=== PATIENT | female | born 1945 | race Caucasian/White ===

== ENCOUNTER 2019-04-28 11:24 | Observation (INO) | payer MEDICARE, OTHER, SELFPAY ==
[2019-04-28] VITALS (7 sets, daily range): BP systolic 131–160; BP diastolic 67–87; PULSE 60–73; RESP 12–18; TEMP 36.5–36.7; O2SAT 96–99; BMI 28.1
--- NOTE | 2019-04-28 11:35 | DI.RAD.S_ITS ---
PROCEDURE: XR CHEST 1V INDICATIONS: chest pain TECHNIQUE: One view of the chest was acquired. COMPARISON: None. FINDINGS: Surgical changes and devices: None. Lungs and pleura: Lungs are clear. No pleural effusions or pneumothorax. Mediastinum: Mediastinal contours appear normal. Heart size is normal. Bones and chest wall: No suspicious bony lesions. Overlying soft tissues appear unremarkable. IMPRESSION: No acute cardiopulmonary pathology. Dictated by: Jose Tinoco M.D. on 04/28/2019 at 12:22 Approved by: Jose Tinoco M.D. on 04/28/2019 at 12:22
--- NOTE | 2019-04-28 11:47 | ED_ITS ---
HPI - Chest Pain <Margiezena BrownBRODY bartonP-BC - Last Filed: 04/28/19 14:02> General Chief Complaint: Chest Pain Stated Complaint: Chest pain Time Seen by Provider: 04/28/19 11:36 Source: patient Mode of arrival: ambulatory Limitations: no limitations History of Present Illness HPI narrative: The patient is a 74-year-old female former smoker with history of hyperlipidemia, hypertension pancreatitis who presents with a chief complaint of epigastric pain radiating up through her chest to her jaw. She states it happened suddenly. Her pain is currently 0.5/10. She states the pain waxes and wanes. She denies any palpitations, lightheadedness dizziness nausea vomiting or shortness of breath. She states at times the pain was so bad she was short of breath, but states this is only due to the pain. She has never felt this way before. She states happened immediately after she ate breakfast when she was ambulating into the [facility] [place] Related Data Home Medications Medication Instructions Recorded Confirmed Calcium Citrate + D 1 tab PO BID 04/28/19 04/28/19 Probiotic 1 cap PO DAILY 04/28/19 04/28/19 Vitamin B 50 1 tab PO DAILY 04/28/19 04/28/19 aspirin 81 mg PO QPM 04/28/19 04/28/19 atenolol 25 mg PO QPM 04/28/19 04/28/19 atorvastatin 10 mg PO QPM 04/28/19 04/28/19 bupropion HCl 150 mg PO BID 04/28/19 04/28/19 cetirizine [Zyrtec] 10 mg PO DAILY 04/28/19 04/28/19 cholecalciferol (vitamin D3) 2,000 unit PO BID 04/28/19 04/28/19 [Vitamin D3] fluticasone propionate 1 spray INTRANASAL BID 04/28/19 04/28/19 levothyroxine 50 mcg PO DAILY 04/28/19 04/28/19 omeprazole 40 mg PO PRN PRN 04/28/19 04/28/19 sertraline 100 mg PO DAILY 04/28/19 04/28/19 Allergies Allergy/AdvReac Type Severity Reaction Status Date / Time adhesive tape AdvReac Intermediate Gastrointestinal Verified 04/28/19 14:49 Upset cephalexin [From Keflex] AdvReac Intermediate Rash Verified 04/28/19 14:49 pineapple AdvReac Intermediate Verified 04/28/19 14:50 plum AdvReac Intermediate mouth sores Verified 04/28/19 14:51 Sulfa (Sulfonamide AdvReac Intermediate Rash Verified 04/28/19 14:49 Antibiotics) walnut AdvReac Intermediate mouth Verified 04/28/19 14:50 Review of Systems <BRODY HookP- - Last Filed: 04/28/19 14:02> Review of Systems GENERAL: Denies chills, fatigue, malaise, fever, sweats. HEENT: Denies sinus pain, ear pain, sore throat, difficulty swallowing, dizziness. RESPIRATORY: Denies dyspnea, cough, wheezing, hemoptysis, sputum. CARDIOVASCULAR: See HPI GASTROINTESTINAL: See HPI : Denies dysuria, frequency, incontinence, hematuria, urinary retention. MUSCULOSKELETAL: denies weakness, joint pain, or bony pain SKIN: Denies rash, skin lesions, or other NEUROLOGIC: Denies weakness, headache, numbness, change in speech, confusion, seizures, incoordination. PSYCHIATRIC: No concerning psychosocial issues. 12 point review of systems is negative except for those stated above PFSH <Margie Gutierrez [facility]- - Last Filed: 04/28/19 14:02> Medical History (Updated 04/28/19 @ 14:43 by Sachin Diop MD) CKD (chronic kidney disease) stage 3, GFR 30-59 ml/min (Acute) History of breast cancer (Acute) History of pancreatitis (Acute) Hyperlipidemia (Acute) Hypertension (Acute) Surgical History (Updated 04/28/19 @ 14:41 by Sachin Diop MD) H/O hysterectomy with oophorectomy (Acute) H/O lumpectomy (Acute) H/O mastectomy (Acute) History of (Acute) History of axillary surgery (Acute) History of reconstruction of left breast (Acute) History of reconstruction of right breast (Acute) History of tonsillectomy (Acute) Family History (Updated 04/28/19 @ 14:43 by Sachin Diop MD) Father Heart attack Brother Heart attack Grandfather Heart attack Mother Lung cancer Social History household members: spouse Smoking Status: Former smoker alcohol intake: current Social History household members: spouse Smoking Status: Former smoker alcohol intake: current Exam <LEE Hook-BC - Last Filed: 04/28/19 14:02> Narrative Exam Narrative: GENERAL: This is a well-nourished, well-developed patient, no acute distress HEAD: Atraumatic. Normocephalic. No temporal or scalp tenderness. EYES: Pupils equal round and reactive. Extraocular motions intact. No scleral icterus. No injection or drainage. ENT: Nose without bleeding, purulent drainage or septal hematoma. Throat without erythema, tonsillar hypertrophy or exudate. Uvula midline. Airway patent. NECK: Trachea midline. No JVD or lymphadenopathy. Supple, nontender, no meningeal signs. CARDIOVASCULAR: Regular rate and rhythm RESPIRATORY: Clear to auscultation. Breath sounds equal bilaterally. No wheezes, rales, or rhonchi. No cough. No increased respiratory effort. No accessory muscle use. GASTROINTESTINAL: Abdomen soft, non-tender, nondistended. No hepato- splenomegaly, or palpable masses. No guarding. Active bowel sounds all 4 quadrants. EXTREMITIES: No clubbing, cyanosis, or edema. No joint tenderness, effusion, or edema noted. BACK: Nontender without deformity or crepitance. No flank tenderness. NEURO: AOx3. No gross cranial nerve deficit. SKIN: No rash or erythema. Initial Vital Signs Initial Vital Signs: Vital Signs Temperature 98 F 04/28/19 11:30 Pulse Rate 73 04/28/19 11:30 Respiratory Rate 18 04/28/19 11:30 Blood Pressure 150/75 H 04/28/19 11:30 Pulse Oximetry 97 04/28/19 11:30 <Margie Vieira DO - Last Filed: 04/29/19 08:33> Initial Vital Signs Initial Vital Signs: Vital Signs Temperature 98 F 04/28/19 11:30 Pulse Rate 73 04/28/19 11:30 Respiratory Rate 18 04/28/19 11:30 Blood Pressure 150/75 H 04/28/19 11:30 Pulse Oximetry 97 04/28/19 11:30 Scores <RANJIT Hook - Last Filed: 04/28/19 14:02> GCS Rose coma scale eye opening: Spontaneous Rose coma scale verbal response: Orientated [place] coma scale motor response: Obey commands Rose coma scale total score: 15 HEART Score Heart Score history: Moderately Suspicious Heart Score EKG: Normal Heart Score Age: > or = 65 years old Heart Score risk factors: > 3 risk factors or hx of atherosclerotic disease Heart Score troponin: < or = to normal limit Heart Score Total: 5 Course <Margiezena BrownLEE barton-BC - Last Filed: 04/28/19 14:02> Orders Ordered: ED Orders 04/29/19 06:35 Amylase Routine Basic Metabolic Panel Routine Lipid Panel Routine Troponin I Routine Aspirin (Aspirin Ec) 81 mg PO QPM [facility] Last Admin: 04/28/19 17:46 Dose: 81 mg Atorvastatin Calcium (Lipitor) 10 mg PO QPM [facility] Last Admin: 04/28/19 17:46 Dose: 10 mg Bupropion HCl (Wellbutrin Sr) 150 mg PO 0900,1700 [facility] Last Admin: 04/29/19 08:15 Dose: 150 mg Admin: 04/28/19 17:46 Dose: 150 mg Calcium Carbonate/Cholecalciferol (Oyster Shell 500-Vit D3 200 Tb) 1 each PO 0900,1700 [facility] Last Admin: 04/29/19 08:15 Dose: 1 each Admin: 04/28/19 17:47 Dose: 1 each Enoxaparin Sodium (Lovenox) 40 mg SUBCUT DAILY [facility] Last Admin: 04/29/19 08:15 Dose: 40 mg Fluticasone Propionate (Flonase) 1 spray NASAL 0900,1700 [facility] Last Admin: 04/29/19 07:56 Dose: Not Given Admin: 04/28/19 17:47 Dose: Not Given Lactobacillus Acidophilus (Bacid Caplet) 1 each PO DAILY [facility] Last Admin: 04/29/19 08:15 Dose: 1 each Levothyroxine Sodium (Synthroid) 50 mcg PO DAILY [facility] Last Admin: 04/29/19 08:15 Dose: 50 mcg Loratadine (Claritin) 10 mg PO DAILY [facility] Last Admin: 04/29/19 08:15 Dose: 10 mg Pantoprazole Sodium (Protonix) 40 mg PO PRN PRN PRN Reason: Acid Reflux Last Admin: 04/29/19 08:15 Dose: 40 mg Sertraline HCl (Zoloft) 100 mg PO DAILY [facility] Last Admin: 04/29/19 08:15 Dose: 100 mg Vitamin D (Vitamin D3) 2,000 unit PO 0900,1700 [facility] Last Admin: 04/29/19 08:15 Dose: 2,000 unit Admin: 04/28/19 17:47 Dose: 2,000 unit Discontinued Medications Aspirin (Aspirin) 325 mg PO NOW ONE Stop: 04/28/19 14:59 Last Admin: 04/28/19 15:37 Dose: 325 mg Non-Formulary Medication (Vitamin B 50) 1 tab PO DAILY [facility] Vital Signs - 8 hr 04/29/19 06:26 Temperature 97.6 F Pulse Rate 61 Respiratory Rate 16 Blood Pressure 120/79 Pulse Oximetry 97 <Margie Vieira, DO - Last Filed: 04/29/19 08:33> Orders Ordered: ED Orders 04/29/19 06:35 Amylase Routine Basic Metabolic Panel Routine Lipid Panel Routine Troponin I Routine Aspirin (Aspirin Ec) 81 mg PO QPM [facility] Last Admin: 04/28/19 17:46 Dose: 81 mg Atorvastatin Calcium (Lipitor) 10 mg PO QPM [facility] Last Admin: 04/28/19 17:46 Dose: 10 mg Bupropion HCl (Wellbutrin Sr) 150 mg PO 0900,1700 [facility] Last Admin: 04/29/19 08:15 Dose: 150 mg Admin: 04/28/19 17:46 Dose: 150 mg Calcium Carbonate/Cholecalciferol (Oyster Shell 500-Vit D3 200 Tb) 1 each PO 0900,1700 [facility] Last Admin: 04/29/19 08:15 Dose: 1 each Admin: 04/28/19 17:47 Dose: 1 each Enoxaparin Sodium (Lovenox) 40 mg SUBCUT DAILY [facility] Last Admin: 04/29/19 08:15 Dose: 40 mg Fluticasone Propionate (Flonase) 1 spray NASAL 0900,1700 [facility] Last Admin: 04/29/19 07:56 Dose: Not Given Admin: 04/28/19 17:47 Dose: Not Given Lactobacillus Acidophilus (Bacid Caplet) 1 each PO DAILY [facility] Last Admin: 04/29/19 08:15 Dose: 1 each Levothyroxine Sodium (Synthroid) 50 mcg PO DAILY [facility] Last Admin: 04/29/19 08:15 Dose: 50 mcg Loratadine (Claritin) 10 mg PO DAILY [facility] Last Admin: 04/29/19 08:15 Dose: 10 mg Pantoprazole Sodium (Protonix) 40 mg PO PRN PRN PRN Reason: Acid Reflux Last Admin: 04/29/19 08:15 Dose: 40 mg Sertraline HCl (Zoloft) 100 mg PO DAILY [facility] Last Admin: 04/29/19 08:15 Dose: 100 mg Vitamin D (Vitamin D3) 2,000 unit PO 0900,1700 [facility] Last Admin: 04/29/19 08:15 Dose: 2,000 unit Admin: 04/28/19 17:47 Dose: 2,000 unit Discontinued Medications Aspirin (Aspirin) 325 mg PO NOW ONE Stop: 04/28/19 14:59 Last Admin: 04/28/19 15:37 Dose: 325 mg Non-Formulary Medication (Vitamin B 50) 1 tab PO DAILY [facility] Vital Signs - 8 hr 04/29/19 06:26 Temperature 97.6 F Pulse Rate 61 Respiratory Rate 16 Blood Pressure 120/79 Pulse Oximetry 97 MDM - Chest Pain <RANJIT Hook - Last Filed: 04/28/19 14:02> Lab Data Result diagrams: 04/28/19 11:42 04/28/19 11:42 Lab Results 04/28/19 04/28/19 04/28/19 Range/Units 11:42 11:42 11:42 WBC 5.5 (4.5-11.0) X10^3/uL RBC 4.72 (4.0-5.2) X10^6/uL Hgb 14.5 (12.0-16.0) g/dL Hct 42.4 (36-46) % MCV 89.8 (80-100) fL MCH 30.7 (26-34) PG MCHC 34.1 (30-36) % RDW 13.9 (11.6-14.8) % Plt Count 261 (150-400) X10^3/uL Neut % (Auto) 59.7 (50-75) % Lymph % (Auto) 27.1 (25-40) % [place] % (Auto) 10.4 (3-14) % Eos % (Auto) 2.0 (2-4) % Baso % (Auto) 0.8 (0-2) % Neut # (Auto) 3300 (1124-7740) /uL Lymph # (Auto) 1500 (5380-7614) /uL Aiken # (Auto) 600 (0-900) /uL Eos # (Auto) 100 (0-450) /uL Baso # (Auto) 0 (0-100) /uL PT 11.0 (10.1-12.7) SECONDS INR 1.0 (0.9-1.3) APTT 27 (26.4-36.2) SECONDS Sodium 140 (137-145) mmol/L Potassium 4.0 (3.4-5.1) mmol/L Chloride 104 (98-107) mmol/L Carbon Dioxide 25 (22-32) mmol/L BUN 22 H (7-17) mg/dL Creatinine 1.20 H (0.52-1.04) mg/dL Estimated GFR 44.0 L (>60) mL/min BUN/Creatinine Ratio 18.3 (6-22) Glucose 94 (80-110) mg/dL Calcium 10.3 H (8.4-10.2) mg/dL Total Bilirubin 0.9 (0.2-1.3) mg/dL AST 30 (14-36) IU/L ALT 29 (9-52) IU/L Alkaline Phosphatase 63 (38-126) U/L Total Creatine Kinase 56 (30-135) U/L CK-MB (CK-2) TNP CK-MB (CK-2) Rel Index TNP Troponin I < 0.012 (0.01-0.034) ng/mL Total Protein 7.9 (6.3-8.2) g/dL Albumin 4.8 (3.5-5.0) g/dL Globulin 3.1 (1.7-4.1) g/dL Albumin/Globulin Ratio 1.5 (1.0-2.8) Amylase (30-110) U/L Lipase 135 (23-300) U/L 04/28/19 04/28/19 04/28/19 Range/Units 11:42 15:40 19:13 WBC (4.5-11.0) X10^3/uL RBC (4.0-5.2) X10^6/uL Hgb (12.0-16.0) g/dL Hct (36-46) % MCV (80-100) fL MCH (26-34) PG MCHC (30-36) % RDW (11.6-14.8) % Plt Count (150-400) X10^3/uL Neut % (Auto) (50-75) % Lymph % (Auto) (25-40) % Aiken % (Auto) (3-14) % Eos % (Auto) (2-4) % Baso % (Auto) (0-2) % Neut # (Auto) (8395-8364) /uL Lymph # (Auto) (4706-2259) /uL Aiken # (Auto) (0-900) /uL Eos # (Auto) (0-450) /uL Baso # (Auto) (0-100) /uL PT (10.1-12.7) SECONDS INR (0.9-1.3) APTT (26.4-36.2) SECONDS Sodium (137-145) mmol/L Potassium (3.4-5.1) mmol/L Chloride (98-107) mmol/L Carbon Dioxide (22-32) mmol/L BUN (7-17) mg/dL Creatinine (0.52-1.04) mg/dL Estimated GFR (>60) mL/min BUN/Creatinine Ratio (6-22) Glucose (80-110) mg/dL Calcium (8.4-10.2) mg/dL Total Bilirubin (0.2-1.3) mg/dL AST (14-36) IU/L ALT (9-52) IU/L Alkaline Phosphatase (38-126) U/L Total Creatine Kinase (30-135) U/L CK-MB (CK-2) CK-MB (CK-2) Rel Index Troponin I < 0.012 (0.01-0.034) ng/mL Total Protein (6.3-8.2) g/dL Albumin (3.5-5.0) g/dL Globulin (1.7-4.1) g/dL Albumin/Globulin Ratio (1.0-2.8) Amylase 122 H (30-110) U/L Lipase 118 (23-300) U/L 04/28/19 04/28/19 Range/Units 19:13 23:05 WBC (4.5-11.0) X10^3/uL RBC (4.0-5.2) X10^6/uL Hgb (12.0-16.0) g/dL Hct (36-46) % MCV (80-100) fL MCH (26-34) PG MCHC (30-36) % RDW (11.6-14.8) % Plt Count (150-400) X10^3/uL Neut % (Auto) (50-75) % Lymph % (Auto) (25-40) % Aiken % (Auto) (3-14) % Eos % (Auto) (2-4) % Baso % (Auto) (0-2) % Neut # (Auto) (6528-7233) /uL Lymph # (Auto) (4701-9248) /uL Aiken # (Auto) (0-900) /uL Eos # (Auto) (0-450) /uL Baso # (Auto) (0-100) /uL PT (10.1-12.7) SECONDS INR (0.9-1.3) APTT (26.4-36.2) SECONDS Sodium (137-145) mmol/L Potassium (3.4-5.1) mmol/L Chloride (98-107) mmol/L Carbon Dioxide (22-32) mmol/L BUN (7-17) mg/dL Creatinine (0.52-1.04) mg/dL Estimated GFR (>60) mL/min BUN/Creatinine Ratio (6-22) Glucose (80-110) mg/dL Calcium (8.4-10.2) mg/dL Total Bilirubin (0.2-1.3) mg/dL AST (14-36) IU/L ALT (9-52) IU/L Alkaline Phosphatase (38-126) U/L Total Creatine Kinase (30-135) U/L CK-MB (CK-2) CK-MB (CK-2) Rel Index Troponin I < 0.012 (0.01-0.034) ng/mL Total Protein (6.3-8.2) g/dL Albumin (3.5-5.0) g/dL Globulin (1.7-4.1) g/dL Albumin/Globulin Ratio (1.0-2.8) Amylase 89 (30-110) U/L Lipase (23-300) U/L Urine Dip Bedside Urine Glucose Negative Bedside Urine Bilirubin - Negative Bedside Urine Ketone - Negative Urine Specific [place] 1.015 Bedside Urine Occult Blood - Negative Bedside Urine pH 7.5 Bedside Urine Protein - Negative Bedside Urine Urobilinogen - Negative Bedside Urine Nitrite - Negative Bedside Urine Leukocytes - Negative Esterase Imaging Data Chest x-ray: Radiologist's impression: Yoselin Bower 74 F [address] [address] XRay Report Signed Patient: Yoselin BowerMR#: [id number] : 6Acct:[id number] Age/Sex: 74 / FDate of Service: 04/28/19 Loc: ED Accession Number: [id number] Procedure: XR chest 1V Ordering Provider: Margie Vieira D.O. PROCEDURE: XR CHEST 1V INDICATIONS: chest pain TECHNIQUE: One view of the chest was acquired. COMPARISON: None. FINDINGS: Surgical changes and devices: None. Lungs and pleura: Lungs are clear. No pleural effusions or pneumothorax. Mediastinum: Mediastinal contours appear normal. Heart size is normal. Bones and chest wall: No suspicious bony lesions. Overlying soft tissues carlos ear unremarkable. IMPRESSION: No acute cardiopulmonary pathology. Dictated by: Jose Tinoco M.D. on 04/28/2019 at 12:22 Approved by: Jose Tinoco M.D. on 04/28/2019 at 12:22 ECG Data Attestation: I personally reviewed and interpreted this ECG as follows: Interpretation: Ventricular rate 66. Sinus rhythm. No ST elevation or depression noted. No ectopy noted. Viewed by Dr. Vieira MDM Narrative Medical decision making narrative: The patient is a 74-year-old female with a concerning medical and family history presents with a chief complaint of chest pain. She has a negative troponin, negative chest x-ray, normal EKG that was straight sinus rhythm. However given her symptoms, and family history as well as her personal history, her heart score shows moderate risk. Given that the patient's PCP is in [place], I contacted Dr. Diop for admission. He kindly agreed to admit the patient for further evaluation such as echo, stress test etc. Patient states understanding of admission. She was chest pain free throughout her stay in the emergency department, with her pain from 0.5/10 decreasing to 0 out shortly after arrival. <Margie Vieira DO - Last Filed: 04/29/19 08:33> Lab Data Lab Results 04/28/19 04/28/19 04/28/19 Range/Units 11:42 11:42 11:42 WBC 5.5 (4.5-11.0) X10^3/uL RBC 4.72 (4.0-5.2) X10^6/uL Hgb 14.5 (12.0-16.0) g/dL Hct 42.4 (36-46) % MCV 89.8 (80-100) fL MCH 30.7 (26-34) PG MCHC 34.1 (30-36) % RDW 13.9 (11.6-14.8) % Plt Count 261 (150-400) X10^3/uL Neut % (Auto) 59.7 (50-75) % Lymph % (Auto) 27.1 (25-40) % Aiken % (Auto) 10.4 (3-14) % Eos % (Auto) 2.0 (2-4) % Baso % (Auto) 0.8 (0-2) % Neut # (Auto) 3300 (2817-9263) /uL Lymph # (Auto) 1500 (5295-3917) /uL Aiken # (Auto) 600 (0-900) /uL Eos # (Auto) 100 (0-450) /uL Baso # (Auto) 0 (0-100) /uL PT 11.0 (10.1-12.7) SECONDS INR 1.0 (0.9-1.3) APTT 27 (26.4-36.2) SECONDS Sodium 140 (137-145) mmol/L Potassium 4.0 (3.4-5.1) mmol/L Chloride 104 (98-107) mmol/L Carbon Dioxide 25 (22-32) mmol/L BUN 22 H (7-17) mg/dL Creatinine 1.20 H (0.52-1.04) mg/dL Estimated GFR 44.0 L (>60) mL/min BUN/Creatinine Ratio 18.3 (6-22) Glucose 94 (80-110) mg/dL Calcium 10.3 H (8.4-10.2) mg/dL Total Bilirubin 0.9 (0.2-1.3) mg/dL AST 30 (14-36) IU/L ALT 29 (9-52) IU/L Alkaline Phosphatase 63 (38-126) U/L Total Creatine Kinase 56 (30-135) U/L CK-MB (CK-2) TNP CK-MB (CK-2) Rel Index TNP Troponin I < 0.012 (0.01-0.034) ng/mL Total Protein 7.9 (6.3-8.2) g/dL Albumin 4.8 (3.5-5.0) g/dL Globulin 3.1 (1.7-4.1) g/dL Albumin/Globulin Ratio 1.5 (1.0-2.8) Amylase (30-110) U/L Lipase 135 (23-300) U/L 04/28/19 04/28/19 04/28/19 Range/Units 11:42 15:40 19:13 WBC (4.5-11.0) X10^3/uL RBC (4.0-5.2) X10^6/uL Hgb (12.0-16.0) g/dL Hct (36-46) % MCV (80-100) fL MCH (26-34) PG MCHC (30-36) % RDW (11.6-14.8) % Plt Count (150-400) X10^3/uL Neut % (Auto) (50-75) % Lymph % (Auto) (25-40) % Aiken % (Auto) (3-14) % Eos % (Auto) (2-4) % Baso % (Auto) (0-2) % Neut # (Auto) (7555-8206) /uL Lymph # (Auto) (9193-6856) /uL Aiken # (Auto) (0-900) /uL Eos # (Auto) (0-450) /uL Baso # (Auto) (0-100) /uL PT (10.1-12.7) SECONDS INR (0.9-1.3) APTT (26.4-36.2) SECONDS Sodium (137-145) mmol/L Potassium (3.4-5.1) mmol/L Chloride (98-107) mmol/L Carbon Dioxide (22-32) mmol/L BUN (7-17) mg/dL Creatinine (0.52-1.04) mg/dL Estimated GFR (>60) mL/min BUN/Creatinine Ratio (6-22) Glucose (80-110) mg/dL Calcium (8.4-10.2) mg/dL Total Bilirubin (0.2-1.3) mg/dL AST (14-36) IU/L ALT (9-52) IU/L Alkaline Phosphatase (38-126) U/L Total Creatine Kinase (30-135) U/L CK-MB (CK-2) CK-MB (CK-2) Rel Index Troponin I < 0.012 (0.01-0.034) ng/mL Total Protein (6.3-8.2) g/dL Albumin (3.5-5.0) g/dL Globulin (1.7-4.1) g/dL Albumin/Globulin Ratio (1.0-2.8) Amylase 122 H (30-110) U/L Lipase 118 (23-300) U/L 04/28/19 04/28/19 Range/Units 19:13 23:05 WBC (4.5-11.0) X10^3/uL RBC (4.0-5.2) X10^6/uL Hgb (12.0-16.0) g/dL Hct (36-46) % MCV (80-100) fL MCH (26-34) PG MCHC (30-36) % RDW (11.6-14.8) % Plt Count (150-400) X10^3/uL Neut % (Auto) (50-75) % Lymph % (Auto) (25-40) % Aiken % (Auto) (3-14) % Eos % (Auto) (2-4) % Baso % (Auto) (0-2) % Neut # (Auto) (1035-9991) /uL Lymph # (Auto) (3514-9782) /uL Aiken # (Auto) (0-900) /uL Eos # (Auto) (0-450) /uL Baso # (Auto) (0-100) /uL PT (10.1-12.7) SECONDS INR (0.9-1.3) APTT (26.4-36.2) SECONDS Sodium (137-145) mmol/L Potassium (3.4-5.1) mmol/L Chloride (98-107) mmol/L Carbon Dioxide (22-32) mmol/L BUN (7-17) mg/dL Creatinine (0.52-1.04) mg/dL Estimated GFR (>60) mL/min BUN/Creatinine Ratio (6-22) Glucose (80-110) mg/dL Calcium (8.4-10.2) mg/dL Total Bilirubin (0.2-1.3) mg/dL AST (14-36) IU/L ALT (9-52) IU/L Alkaline Phosphatase (38-126) U/L Total Creatine Kinase (30-135) U/L CK-MB (CK-2) CK-MB (CK-2) Rel Index Troponin I < 0.012 (0.01-0.034) ng/mL Total Protein (6.3-8.2) g/dL Albumin (3.5-5.0) g/dL Globulin (1.7-4.1) g/dL Albumin/Globulin Ratio (1.0-2.8) Amylase 89 (30-110) U/L Lipase (23-300) U/L Urine Dip Bedside Urine Glucose Negative Bedside Urine Bilirubin - Negative Bedside Urine Ketone - Negative Urine Specific [place] 1.015 Bedside Urine Occult Blood - Negative Bedside Urine pH 7.5 Bedside Urine Protein - Negative Bedside Urine Urobilinogen - Negative Bedside Urine Nitrite - Negative Bedside Urine Leukocytes - Negative Esterase Discharge Plan Departure Patient Disposition: Admitted as Observation Clinical Impression: Chest pain Qualifiers: Chest pain type: unspecified Qualified Code(s): R07.9 - Chest pain, unspecified Discharge Date/Time: 04/28/19 14:12 Interventions: ED Discharge Assessment Last Done: 04/28/19 13:57 Admit Date/Time: 04/28/19 13:26 Admit Provider: Sachin Diop <Margie Vieira DO - Last Filed: 04/29/19 08:33> Cosign ED Attending Cosmichaelature Attestation: I was immediately available in the department for consultation. This documentation has been reviewed and I agree with assessment and plan. Supervised by Margie Vieira DO
[2019-04-28 11:59] LABS: Add Manual Diff / Slide Review NO; Basophils Absolute Auto 0 /uL (0-100); Basophils Percent Auto 0.8 % (0-2); Eosinophils Absolute Auto 100 /uL (0-450); Hematocrit 42.4 % (36-46); Hemoglobin 14.5 g/dL (12.0-16.0); Lymphocytes Absolute Auto 1500 /uL (1100-4500); Lymphocytes Percent Auto 27.1 % (25-40); Mean Corpuscular HGB Conc 34.1 % (30-36); Mean Corpuscular Hemoglobin 30.7 PG (26-34); Mean Corpuscular Volume 89.8 fL (80-100); Monocytes Absolute Auto 600 /uL (0-900); Monocytes Percent Auto 10.4 % (3-14); Neutrophils Absolute Auto 3300 /uL (1500-7000); Neutrophils Percent Auto 59.7 % (50-75); Platelet Count 261 X10^3/uL (150-400); Red Blood Cell Count 4.72 X10^6/uL (4.0-5.2); Red Cell Distribution Width 13.9 % (11.6-14.8); White Blood Cell Count 5.5 X10^3/uL (4.5-11.0)
[2019-04-28 12:08] LABS: PTT Partial Thromboplastin Tim 27 SECONDS (26.4-36.2)
[2019-04-28 12:09] LABS: Alanine Aminotransferase 29 IU/L (9-52); Albumin 4.8 g/dL (3.5-5.0); Albumin Globulin Ratio 1.5 (1.0-2.8); Alkaline Phosphatase 63 U/L (38-126); Aspartate Aminotransferase 30 IU/L (14-36); BUN Creatinine Ratio 18.3 (6-22); Bilirubin Total 0.9 mg/dL (0.2-1.3); Blood Urea Nitrogen 22 mg/dL (7-17); Calcium 10.3 mg/dL (8.4-10.2); Carbon Dioxide 25 mmol/L (22-32); Chloride 104 mmol/L (98-107); Creatine Kinase 56 U/L (30-135); Globulin 3.1 g/dL (1.7-4.1); Glucose 94 mg/dL (80-110); HEMOLYSIS < 15 (0-50); Lipase 135 U/L (23-300); Sodium 140 mmol/L (137-145); Total Protein 7.9 g/dL (6.3-8.2)
[2019-04-28 12:11] LABS: Amylase 122 U/L (30-110)
[2019-04-28 12:21] LABS: Troponin I < 0.012 ng/mL (0.01-0.034)
--- NOTE | 2019-04-28 14:02 | DI.ECHO.S_ITS ---
[facility]+ [facility] +---------+ : : [address] : : : : [id number] : : : : Phone: [phone] Echocardiogram Report + + :Name: JOSS RICK Study Date: 04/29/2019 Height: 67 in : :[facility] Exam Location: [facility] Weight: 180 lb : : Gender: Female BSA: 1.9 m2 : :: 1945 Age: 74 yrs BP: 135/80 mmHg: :Reason For Study: Chest pain : :Ordering Physician: Ambrosio : :Hospitalist Performed By: Eloisa Page : :Referring: Sachin NAZARIO E : + + Interpretation Summary The ejection fraction is estimated to be 60-65%. The atrial septum is aneurysmal. There is no significant valvular heart disease. Procedure: A two-dimensional transthoracic echocardiogram with color flow and Doppler was performed. The study quality was technically adequate. There is no prior echocardiogram noted for this patient. The patient was in normal sinus rhythm during the exam. Left Ventricle: The left ventricle is normal in size, wall thickness, and systolic function without any focal wall motion abnormalities. The ejection fraction is estimated to be 60-65%. Left ventricular wall motion is normal. Right Ventricle: The right ventricle is normal size. Right ventricular systolic function is at the lower limits of normal. Atria: The left atrium is moderately dilated. Right atrial size is normal. There is no Doppler evidence for an interatrial shunt. The atrial septum is aneurysmal. Mitral Valve: The mitral valve leaflets appear mildly thickened, but open well. There is trace mitral regurgitation. Aortic Valve: The aortic valve is trileaflet. The aortic valve opens well. No aortic regurgitation is present. Tricuspid Valve: The tricuspid valve is normal in structure and function. There is a trace or physiologic amount of tricuspid regurgitation. Pulmonary artery pressures cannot be estimated because of the lack of a measurable TR jet velocity. Pulmonic Valve: The pulmonic valve is not well visualized. There is trace pulmonic regurgitation. Great Vessels: The aortic root is borderline dilated. The ascending aorta is mildly enlarged. The pulmonary is not well visualized. The IVC is of normal diameter and collapses greater than 50% with a sniff. This suggests a low right atrial pressure of 3 mm Hg. Pericardium/ Pleura There is no pericardial effusion. There is no pleural effusion. MMode/2D Measurements & Calculations LVIDd: 4.2 cm Ao root diam: 3.9 cm LVIDs: 3.3 cm asc Aorta Diam: 3.5 cm FS: 21.3 % EPSS: 1.5 cm IVSd: 0.87 cm LVPWd: 1.0 cm LV perry. diameter/BSA (cm/m^2): 2.2 LV sys. diameter/BSA (cm/m^2): 1.7 LA A2 area: 27.9 cm2 RA long axis: 5.0 cm LA A4 area: 18.0 cm2 RA area: 12.0 cm2 LA length (vol): 5.4 cm RA vol: 24.6 ml LA vol: 78.9 ml RA : 12.7 ml/m2 LA vol index: 40.8 ml/m2 RVD1 (basal): 3.1 cm RVD2 (mid): 2.5 cm TAPSE: 1.4 cm Doppler Measurements & Calculations Ao V2 max: 108.4 cm/sec LVOT Max Adan: 76.3 cm/sec Ao V2 mean: 66.9 cm/sec LV V1 max P.3 mmHg Ao max P.7 mmHg LV V1 VTI: 12.3 cm Ao mean P.2 mmHg sev ratio: 0.68 Ao V2 VTI: 18.2 cm MV E max adan: 42.1 cm/sec PA V2 max: 76.3 cm/sec MV A max adan: 72.6 cm/sec PA V2 mean: 53.7 cm/sec MV E/A: 0.58 PA mean P.3 mmHg Med Peak E' Adan: 3.7 cm/sec PA Accel Time: 0.10 sec E/E' med: 11.3 MV P1/2t: 91.0 msec MV P1/2t max adan: 42.6 cm/sec MVA(P1/2t): 2.4 cm2 Reading Physician:12:50 PM
--- NOTE | 2019-04-28 14:10 | PM.HP.1 ---
History of Present Illness Date Patient Seen: 04/28/19 Time Patient Seen: 14:10 Chief complaint: Chest pain Narrative: This is a 78-year-old female with a very strong family history for coronary artery disease who presents to the [facility] Emergency Department describing a severe ?crazy pain? in her epigastrium/lower substernal area radiating to both sides of her jaw and neck this morning as she was trying to get out of her car after eating breakfast. ?She was just trying to go to the [employer]? when she suddenly could not get out of her car. The pain was overwhelming for about 5 minutes before resolving spontaneously. She felt short of breath and nauseated but there was no sweating or palpitations. Her father at age 48 of a sudden IA. Her brother at age 46 of a sudden IA. Her grandfather of age 42 of a sudden IA. She is visiting the area in her recreational vehicle, normally living in [facility] but spending the summer driving around various locations in [facility] and nearby. She has had prior episodes of pancreatitis with pain in a bilateral upper abdominal location but has never had chest pain like this and has never had pain radiating into the jaw/neck. Her risk factors are hypertension, hyperlipidemia and family history. She will be given aspirin. There are no acute signs of pulmonary embolus or aortic dissection noted. The chest x-ray and EKG are reviewed and are normal. Her troponin is less than 0.012. Her amylase is mildly elevated at 122. This will need to be rechecked given her history of prior pancreatitis. She tells me that her abdominal ultrasound was previously negative for gallbladder disease. Patient History Medical History (Updated 04/28/19 @ 14:43 by Sachin Diop MD) CKD (chronic kidney disease) stage 3, GFR 30-59 ml/min (Acute) History of breast cancer (Acute) History of pancreatitis (Acute) Hyperlipidemia (Acute) Hypertension (Acute) Surgical History (Updated 04/28/19 @ 14:41 by Sachin Diop MD) H/O hysterectomy with oophorectomy (Acute) H/O lumpectomy (Acute) H/O mastectomy (Acute) History of (Acute) History of axillary surgery (Acute) History of reconstruction of left breast (Acute) History of reconstruction of right breast (Acute) History of tonsillectomy (Acute) Family History (Updated 04/28/19 @ 14:43 by Sachin Diop MD) Father Heart attack Brother Heart attack Grandfather Heart attack Mother Lung cancer Social History household members: spouse Smoking Status: Former smoker alcohol intake: current Family & Social History Family History (Updated 04/28/19 @ 14:43 by Sachin Diop MD) Father Heart attack Brother Heart attack Grandfather Heart attack Mother Lung cancer Social History: Her power of civil litigation attorney/backup decision maker is her [employer] Bower She spends her melissa at various locations driving and camping in a recreational vehicle. She is staying here in [place] for a couple more weeks, before moving on. Her base, for the winter is in [facility]. Her primary care physician is in [place] [facility], Dr. aTng Ramos. She does not smoke cigarettes. She drinks 1-2 glasses of wine per day. She denies use of illicit drugs. Safety & Behavioral: Feels Safe in Current Yes Environment Been Physically Hurt or No Threatened By a Person Tobacco & Substance use: Smoking Status Former smoker alcohol intake frequency 0-2 drinks per day Substance Use Type does not use Meds Home Medications Medication Instructions Recorded Confirmed Type Calcium Citrate + D 1 tab PO BID 04/28/19 04/28/19 History Probiotic 1 cap PO DAILY 04/28/19 04/28/19 History Vitamin B 50 1 tab PO DAILY 04/28/19 04/28/19 History aspirin 81 mg PO QPM 04/28/19 04/28/19 History atenolol 25 mg PO QPM 04/28/19 04/28/19 History atorvastatin 10 mg PO QPM 04/28/19 04/28/19 History bupropion HCl 150 mg PO BID 04/28/19 04/28/19 History cetirizine [Zyrtec] 10 mg PO DAILY 04/28/19 04/28/19 History cholecalciferol (vitamin D3) 2,000 unit PO BID 04/28/19 04/28/19 History [Vitamin D3] fluticasone propionate 1 spray INTRANASAL BID 04/28/19 04/28/19 History levothyroxine 50 mcg PO DAILY 04/28/19 04/28/19 History omeprazole 40 mg PO PRN PRN 04/28/19 04/28/19 History sertraline 100 mg PO DAILY 04/28/19 04/28/19 History Allergies Allergy/AdvReac Type Severity Reaction Status Date / Time adhesive tape AdvReac Intermediate Gastrointestinal Verified 04/28/19 14:49 Upset cephalexin [From Keflex] AdvReac Intermediate Rash Verified 04/28/19 14:49 pineapple AdvReac Intermediate Verified 04/28/19 14:50 plum AdvReac Intermediate mouth sores Verified 04/28/19 14:51 Sulfa (Sulfonamide AdvReac Intermediate Rash Verified 04/28/19 14:49 Antibiotics) walnut AdvReac Intermediate mouth Verified 04/28/19 14:50 Review of Systems Review of Systems Negative for vomiting, bleeding, rashes, seizures, joint pain, back pain, sore throat, headache, dysuria, new allergies, difficulty talking or walking. All systems reviewed & are unremarkable except as noted in HPI and below Exam Vital Signs (past 8 hours): - 04/28/19 11:30 04/28/19 12:12 04/28/19 13:00 Temperature 98 F Pulse Rate 73 63 63 Respiratory Rate 18 12 16 Blood Pressure 150/75 H Blood Pressure [Right Arm] 131/78 139/67 Pulse Oximetry 97 97 96 Oxygen Delivery Method Room Air Narrative Exam Narrative: She is alert and oriented x3, in no apparent distress. Pupils are equally round and reactive to light and accommodation. Extraocular muscles are intact. Sclerae are pink and nonicteric. Throat looks normal. No lymph nodes are felt head, neck, supraclavicular area. There is no thyromegaly. JVD is less than 6 cm. No carotid bruits are heard. Heart is regular rate and rhythm without murmur. Lungs are clear to auscultation bilaterally. Abdomen is soft, nontender, no organomegaly. Extremities have no ankle edema. Cranial nerves 2-12 tested intact. Motor function is 5/5 throughout. Balance is intact. There is no tremor. There is no skin rash or jaundice. Objective Labs Result Diagrams: 04/28/19 11:42 04/28/19 11:42 Labs: Laboratory Results - last 24 hr 04/28/19 04/28/19 04/28/19 11:42 11:42 11:42 WBC 5.5 RBC 4.72 Hgb 14.5 Hct 42.4 MCV 89.8 MCH 30.7 MCHC 34.1 RDW 13.9 Plt Count 261 Neut % (Auto) 59.7 Lymph % (Auto) 27.1 [place] % (Auto) 10.4 Eos % (Auto) 2.0 Baso % (Auto) 0.8 Neut # (Auto) 3300 Lymph # (Auto) 1500 [place] # (Auto) 600 Eos # (Auto) 100 Baso # (Auto) 0 PT 11.0 INR 1.0 APTT 27 Sodium 140 Potassium 4.0 Chloride 104 Carbon Dioxide 25 BUN 22 H Creatinine 1.20 H Estimated GFR 44.0 L BUN/Creatinine Ratio 18.3 Glucose 94 Calcium 10.3 H Total Bilirubin 0.9 AST 30 ALT 29 Alkaline Phosphatase 63 Total Creatine Kinase 56 CK-MB (CK-2) TNP CK-MB (CK-2) Rel Index TNP Troponin I < 0.012 Total Protein 7.9 Albumin 4.8 Globulin 3.1 Albumin/Globulin Ratio 1.5 Amylase Lipase 135 04/28/19 11:42 WBC RBC Hgb Hct MCV MCH MCHC RDW Plt Count Neut % (Auto) Lymph % (Auto) [place] % (Auto) Eos % (Auto) Baso % (Auto) Neut # (Auto) Lymph # (Auto) [place] # (Auto) Eos # (Auto) Baso # (Auto) PT INR APTT Sodium Potassium Chloride Carbon Dioxide BUN Creatinine Estimated GFR BUN/Creatinine Ratio Glucose Calcium Total Bilirubin AST ALT Alkaline Phosphatase Total Creatine Kinase CK-MB (CK-2) CK-MB (CK-2) Rel Index Troponin I Total Protein Albumin Globulin Albumin/Globulin Ratio Amylase 122 H Lipase Assessment & Plan Assessment & Plan narrative: Chest pain -her symptoms are highly concerning for occult coronary artery disease/angina. -her risk factors are very significant with strong family history, hyperlipidemia and hypertension. -Observe on telemetry over night, follow troponins and order treadmill Mibi scan for the morning. -check echocardiogram and lipids in the morning GERD -continue omeprazole Hypertension -continue atenolol and add additional agents if needed. Hyperlipidemia -continue atorvastatin -check lipids in the morning Depression -continue Wellbutrin and sertraline. Hypothyroidism -continue home dose of levothyroxine. Elevated Amylase -this is mildly elevated and will need to be rechecked. -check lipase -given her history of prior pancreatitis it is still possible that she is early in a pancreatitis cycle and that this is not a cardiac symptom presentation. -if her amylase continues to rise she will need to be placed on bowel rest, with IV fluids and a gallbladder ultrasound will be needed. 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 -avoid nephrotoxic agents and recheck BMP in the morning.
[2019-04-28] MEDS: ASPIRIN 325 MG TABLET PO (15:37)
[2019-04-28 16:04] LABS: Lipase 118 U/L (23-300)
[2019-04-28] MEDS: ASPIRIN EC 81 MG TABLET PO (17:46)
[2019-04-28] MEDS: buPROPion SR 150 MG TAB PO (17:46)
[2019-04-28] MEDS: ATORVASTATIN 10 MG TABLET PO (17:46)
[2019-04-28] MEDS: CHOLECALCIFEROL (VITAMIN D3) 1,000 UNIT TABLET 2000 UNIT PO (17:47)
[2019-04-28] MEDS: CALCIUM CARB/VIT D3 500/200 TABLET 1 EACH PO (17:47)
[2019-04-28 19:57] LABS: Amylase 89 U/L (30-110)
[2019-04-28 20:10] LABS: Troponin I < 0.012 ng/mL (0.01-0.034)
[2019-04-28 23:31] LABS: Troponin I < 0.012 ng/mL (0.01-0.034)
[2019-04-29] VITALS: BP 122/82; PULSE 65; RESP 16; TEMP 36.7; O2SAT 97
[2019-04-29 00:15] VITALS: O2SAT 97
[2019-04-29 06:26] VITALS: BP 120/79; PULSE 61; RESP 16; TEMP 36.4; O2SAT 97
[2019-04-29 07:28] LABS: BUN Creatinine Ratio 18.3 (6-22); Blood Urea Nitrogen 22 mg/dL (7-17); Carbon Dioxide 28 mmol/L (22-32); Chloride 102 mmol/L (98-107); Glucose 104 mg/dL (80-110); HEMOLYSIS < 15 (0-50); Potassium 4.1 mmol/L (3.4-5.1); Sodium 139 mmol/L (137-145)
[2019-04-29 07:29] LABS: Amylase 71 U/L (30-110); Cholesterol 192 mg/dL (140-199); HDL Cholesterol 81 mg/dL (40-60); LDL Cholesterol Calculated 84 mg/dL (<100); Triglycerides 134 mg/dL (35-150)
[2019-04-29 07:39] LABS: Troponin I < 0.012 ng/mL (0.01-0.034)
[2019-04-29 07:50] VITALS: O2SAT 99
[2019-04-29 08:00] VITALS: BP 135/80; PULSE 63; RESP 16; TEMP 36.9; O2SAT 96
[2019-04-29] MEDS: buPROPion SR 150 MG TAB PO (08:15)
[2019-04-29] MEDS: CHOLECALCIFEROL (VITAMIN D3) 1,000 UNIT TABLET 2000 UNIT PO (08:15)
[2019-04-29] MEDS: PANTOPRAZOLE 40 MG TABLET PO (08:15)
[2019-04-29] MEDS: CALCIUM CARB/VIT D3 500/200 TABLET 1 EACH PO (08:15)
[2019-04-29] MEDS: LACTOBACILLUS ACIDOPHILUS TABLET 1 EACH PO (08:15)
[2019-04-29] MEDS: LORATADINE 10 MG TABLET PO (08:15)
[2019-04-29] MEDS: LEVOTHYROXINE 50 MCG TABLET PO (08:15)
[2019-04-29] MEDS: SERTRALINE 50 MG TABLET 100 MG PO (08:15)
[2019-04-29] MEDS: ENOXAPARIN 40 MG/0.4 ML SYRINGE SUBCUT (08:15)
--- NOTE | 2019-04-29 12:19 | PM.TREADMILL ---
Cardiac Stress Test Report Referral & Results Date Patient Seen: 04/29/19 Time Patient Seen: 12:19 Requesting provider: Sachin Diop Indication: Chest discomfort Rest ECG: Unremarkable Procedure Note: Today following both written and verbal informed consent the patient was exercised according to a standard Kunal protocol patient went for a total of 6 minutes 5 seconds achieving a maximum heart rate of 140 maximum systolic blood pressure of 168. This is approximately 7.0 METS. Exercise was terminated at this point because of targets were met. Patient was also given Cardiolite through a previously started Hep-Lock IV by the diagnostic imaging staff approximately 1 minute prior to the cessation of exercise. There were nonspecific ST-T segment changes but no clear evidence of ischemia Patient's functional aerobic impairment rated about-5% on the active scale or 105% of normal Rare PVC identified Impression: No ECG evidence of ischemia Please see perfusion imaging report as well Better than average exercise capacity Please note: Actual ECG tracings can be found in the PACS system.
--- NOTE | 2019-04-29 13:14 | P.DS_ITS ---
History of Present Illness Date Patient Seen: 04/29/19 Time Patient Seen: 13:12 Chief complaint: Chest pain Discharge Providers Date of admission: 04/28/19 13:26 Discharge Date: 04/29/19 Consults: 04/28/19 14:44 Consult to Pastoral Services Routine Comment: would be happy to have an in-house sample shoe inspector and reworker visit Discharge provider: Arsenio Cabezas MD Summary Discharge Diagnosis: One. Chest pain myocardial infarction ruled out Hospital Course: Patient presented with atypical chest pain very severe subst ernal pain that radiated to her neck and jaw. EKG was unremarkable her pain went away just as she came to the ER. She had negative troponin x3 stress test was done today was read as normal with a nuclear stress test that did not feel that she needed any follow-up rest study. Echo was also performed and those images are and reading is pending at this time. The patient will be discharged home with any without any changes to her medications and will follow up with primary care physician for further evaluation of this chest pain Status at Discharge Cognitive/behavioral status at discharge: at baseline, oriented Functional status at discharge: independent ambulation Overall status at discharge: patient is back to baseline Time Spent with Patient Less than 30 minutes Exam Vital Signs (past 8 hours): - 04/29/19 06:26 04/29/19 07:50 04/29/19 08:00 Temperature 97.6 F 98.5 F Pulse Rate 61 63 Respiratory Rate 16 16 Blood Pressure 120/79 135/80 Pulse Oximetry 97 99 96 Oxygen Delivery Method Room Air Oxygen Flow Rate 0 Objective Labs Result Diagrams: 04/28/19 11:42 04/29/19 06:35 Labs: Laboratory Results - last 24 hr 04/28/19 04/28/19 04/28/19 15:40 19:13 19:13 Sodium Potassium Chloride Carbon Dioxide BUN Creatinine Estimated GFR BUN/Creatinine Ratio Glucose Calcium Troponin I < 0.012 Triglycerides Cholesterol LDL Cholesterol, Calc HDL Cholesterol Amylase 89 Lipase 118 04/28/19 04/29/19 04/29/19 23:05 06:35 06:35 Sodium Potassium Chloride Carbon Dioxide BUN Creatinine Estimated GFR BUN/Creatinine Ratio Glucose Calcium Troponin I < 0.012 Triglycerides 134 Cholesterol 192 LDL Cholesterol, Calc 84 HDL Cholesterol 81 H Amylase 71 Lipase 04/29/19 06:35 Sodium 139 Potassium 4.1 Chloride 102 Carbon Dioxide 28 BUN 22 H Creatinine 1.20 H Estimated GFR 44.0 L BUN/Creatinine Ratio 18.3 Glucose 104 Calcium 10.0 Troponin I < 0.012 Triglycerides Cholesterol LDL Cholesterol, Calc HDL Cholesterol Amylase Lipase Discharge Plan Discharge Plan Patient Disposition: Home Discharge Med Rec/Prescriptions Prescriptions: Continued bupropion HCl 150 mg tablet sustained-release 12 hr 150 mg PO BID RF: 0 atorvastatin 10 mg tablet 10 mg PO QPM RF: 0 sertraline 100 mg tablet 100 mg PO DAILY RF: 0 atenolol 25 mg tablet 25 mg PO QPM RF: 0 omeprazole 40 mg capsule,delayed release(DR/EC) 40 mg PO PRN PRN (Reason: Acid Reflux) RF: 0 levothyroxine 50 mcg tablet 50 mcg PO DAILY RF: 0 fluticasone propionate 50 mcg/actuation spray,suspension 1 spray intranasal BID RF: 0 cetirizine [Zyrtec] 10 mg Tablet 10 mg PO DAILY RF: 0 aspirin 81 mg Tablet,Delayed Release (Dr/Ec) 81 mg PO QPM RF: 0 cholecalciferol (vitamin D3) [Vitamin D3] 2,000 unit Capsule 2,000 unit PO BID RF: 0 Calcium Citrate + D 1 tab PO BID RF: 0 Probiotic 1 cap PO DAILY RF: 0 Vitamin B 50 1 tab PO DAILY RF: 0 Provider Discharge Instructions Diet: Diet as Tolerated Activity: as tolerated Other treatments: Follow up with primary care provider 1-2 weeks. Discharge Data Attending Provider: Sachin Diop Admit Date/Time: 04/28/19 13:26 Quality VTE Deep Vein Thrombosis/Pulmonary Embolism Present on Admission: No
--- NOTE | 2019-04-29 13:47 | PC.NURSE ---
Pt dressed and ready for discharge home with Spouse who is present at the bedside. Pt denies chest pain. States she has some chronic right shoulder pain that occurs when she sleeps wrong or not in her own bed. An ice pack was given to Pt to relieve her pain. She denies further need for pain intervention. Pt has had her echocardiogram and stress test. Dr. Cabezas has seen this Pt and has written discharge and follow up orders and discussed same with Pt. Removed IV and tele. Went over d/c instructions with Pt and Spouse-discussed continuation of home meds as before and following up with PCP as well as completing second portion of her stress test as scheduled. Reviewed stroke education and answered all questions. Pt denies further questions and is ready to be taken out via w/c by PVC LOADER to POV with Spouse and all belongings.
--- NOTE | 2019-04-29 16:41 | CM.DANOTE ---
Discharge Planning/Care Management DCP: assessment: case received and discussed in Team Rounds. Hospitalist Dr. Cabezas had not yet seen pt. Pt is a 74 year old female who admitted yesterday afternoon to care of the hospitalist team. Admission status: OBS: confirmed by UR VALENTNIA Aguilar. Payer: Medicare and [employer]. PT lists her home address as [facility]. She and her are on an extended vacation/road trip in their RV. Went to room this afternoon to check in with pt. A d/c to home order was noted. VALENTINA Han confirms that pt had been discharged and that she and her left about 1400. No concerns re this d/c today had been noted by the care team members who worked with pt. Advanced directive, confirm from FAMILY Start: 04/28/19 14:45 Freq: Q24H Status: Discharge Protocol: Document 04/28/19 14:45 CM (Rec: 04/28/19 14:45 CM [id number]) Advance Directive, confirm on record Time 14:45 Person contacted Pt. Copy received No Document 04/29/19 07:50 CM (Rec: 04/29/19 09:11 CM [id number]) Advance Directive, confirm on record Time 14:45 Person contacted Pt. Copy received No Time 09:10 Person contacted Pt. Copy received No Advanced directive available on record No CM Discharge Assessment Start: 04/29/19 16:39 Freq: Status: Active Protocol: Document 04/29/19 16:39 ITV (Rec: 04/29/19 16:41 ITV [id number]) Discharge Planning Assessment Advance Directives? Yes: Pt states she will have spouse check and bring it. Advance Directives on File No History Provided By Patient Medical Record Prior Living Arrangements RV Comment traveling with her in RV on extended road trip/ vacation Household Members spouse Is patient alert and oriented? Yes Review Status In Process
--- NOTE | 2019-05-03 10:23 | DI.NM.S_ITS ---
DATE OF SERVICE: 04/29/2019 STUDY TYPE: One-day exercise only nuclear stress test. CLINICAL STORY: The patient admitted to [facility] with chest pain. RADIOISOTOPES: 26.2 mCi Tc-99m used as a stress dose during the stress test. No resting images obtained. SYMPTOMS: No angina during the study. EXERCISE ECG: The patient exercised for 6 minutes and 5 seconds, reaching 7.0 METs and PADDY of -5%, above average exercise capacity. Target heartrate was achieved. Appropriate blood pressure response to exercise. Resting ECG shows sinus rhythm with nonspecific ST-T changes. With exercise, there were no ischemic ST changes. No ectopy during the study. PERFUSION IMAGES: There is a slight atypical defect on stress supine images that improved significantly with prone images, suggesting attenuation artifact. Of note, the patient has breast implants, and this probably is causing the supine stress artifact. No evidence of ischemia or infarction on the perfusion images. GATED IMAGES: Normal left ventricular size, wall motion, and systolic function (post-stress EF 76%). [id number] ratio is normal at 0.37. CONCLUSIONS: Low-risk, stress only treadmill pharmaceutical nuclear stress test. 1. No perfusion evidence of ischemia or infarction. 2. Normal left ventricular size, wall motion, and systolic function (post- stress EF 76%). 3. No ECG evidence of ischemia. 4. No angina during the study. 5. Good exercise tolerance (7.0 METs, PADDY -5% on active scale). Target heartrate achieved. Appropriate blood pressure response to exercise. 6. No prior nuclear stress test available for comparison. Yoselin Bower - CUCA/lesia/ts doc#: [id number]/job#: [id number] dd: 04/29/2019 13:06:00 dt: 04/30/2019 06:54:00 DICTATING /COPIES TO: Geronimo Jenkins MD COPIES MNE: [id number]
== END 2019-04-29 14:03 | disposition home or self-care (01) ==
LOC: ED 11:45 → AC 13:27
PROVIDERS: Emergency Medicine; Admitting Provider Family Medicine; Emergency Provider Nurse Practitioner Family; Visit Provider Family Medicine
DX: R07.9 Chest pain, unspecified (principal); R10.13 Epigastric pain; Z87.891 Personal history of nicotine dependence; E78.5 Hyperlipidemia, unspecified; N18.3 Chronic kidney disease, stage 3 (moderate); I12.9 Hypertensive chronic kidney disease with stage 1 through stage 4 chronic kidney disease, or unspecified chronic kidney disease
CPT/HCPCS: 36415; 36591; 71045; 78451; 80048; 80053; 80061; 81003; 82150; 82550; 83690; 84484; 85025; 85610; 85730; 93005; 93016; 93017; 93018; 93041; 93306; 96372; 99283; 99285; G0378; A9502; J1650